=== PATIENT | male | born 1970 | race Caucasian/White ===

== ENCOUNTER → 2016-07-16 | Outpatient (CLI) | payer BC ==
[~2016-07-16] MED LIST: LISI-461 PO
[2016-07-16 10:10] LABS: IMMUNOGLOBULN M 92.7 mg/dL (40-230); THYROID STIMULATING HORMONE 0.973 uIu/ml (0.300-4.500)
[2016-07-20 22:57] LABS: ANTI-CENTROMERE AB <1.0 NEG AI (<1.0 NEG); ANTI-SS-A <1.0 NEG AI (<1.0 NEG); ANTI-SS-B <1.0 NEG AI (<1.0 NEG); DNA ds CRITHIDIA NEGATIVE (NEGATIVE); LSP % CELLS ANALYZED CD4 68 % (30-61); LSP ABSOLUTE CT CD4 989 cells/uL (490-1740); LSP LYMPHOCYTES ABSOLUTE 1446 cells/uL (850-3900); MICROSOMAL AB <1 IU/ML (<9); Sm Antibody <1.0 NEG AI (<1.0 NEG)
== END | disposition home or self-care (01) ==
LOC: C.LAB1850 07:15
PROVIDERS: ATTEND Internal Medicine Infectious Disease
DX: D84.9 Immunodeficiency, unspecified (principal)

== ENCOUNTER → 2017-02-15 | Outpatient (CLI) | payer BC ==
--- NOTE | 2017-02-15 19:29 | DIAGNOSTIC IMAGING REPORT ---
BONE SCAN 3 PHASE LIMITED HISTORY: 46 years-old Male R/O AVN, LEFT KNEE PAIN chronic left knee pain for one year. No reported trauma. Clinical concern for possible a vascular necrosis. COMPARISON: None available TECHNIQUE: 3 phase bone scan of the lower extremities was obtained utilizing 27.3 mCi technetium 99 MDP with anterior and posterior planar scintigraphic images. Flow images were obtained immediately. Delayed scans were obtained 3 hours post injection. FINDINGS: Mild asymmetrically increased uptake is noted within the region of the right anterolateral calf on the blood flow and blood pool images. Additionally, there is moderate asymmetric uptake on the delayed images within the distribution of the left lateral tibial plateau. No photopenic defects identified. IMPRESSION: 1. Mild asymmetric uptake of the right anterolateral calf on the blood flow and blood pool images suggests muscle strain or myositis. 2. Moderate asymmetric tracer uptake about the lateral tibial plateau on the left is nonspecific. Degenerative changes or remote fracture would be primary differential considerations. Correlate with follow-up radiographs. The above report was generated using voice recognition software. It may contain grammatical, syntax or spelling errors. Electronically signed by: Nahum Chavarria M.D. 02/15/2017 7:28 PM Dictated Date/Time: 02/15/2017 7:17 PM
== END | disposition home or self-care (01) ==
LOC: C.NUCL 14:15
PROVIDERS: ATTEND Orthopaedic Surgery
DX: M25.562 Pain in left knee (principal)